=== PATIENT | female | born 1940 | race Caucasian/White ===

== ENCOUNTER 2020-11-10 09:39 | Outpatient (CLI) | payer MEDICARE, SELFPAY ==
[2020-11-10] MEDS: IRON SUCROSE COMPLEX 300 MG in SODIUM CHLORIDE 0.9% IV 250 ML 125 MG IVPB (10:09)
[2020-11-10 10:13] VITALS: BMI 25.9
[2020-11-10 10:14] VITALS: BP 120/83; PULSE 80; RESP 14; TEMP 36.6; O2SAT 97
--- NOTE | 2020-11-10 13:00 | PC.NURSE ---
Patient here for #1 of 3 IV weekly Venofer infusions. Medication education given. NO concerns voiced. IV Venofer administered See MAY. Tolerated well. Will return Next Saturday for #2 of 3 2020 @ 4425. Safe exit of hospital.
== END 2020-11-10 09:40 | disposition home or self-care (01) ==
LOC: CHSLAB 09:47 → CHSTREATRM 09:49
PROVIDERS: PCP Physician Assistant; Visit Provider Internal Medicine Hematology & Oncology
DX: D50.9 Iron deficiency anemia, unspecified (principal)
CPT/HCPCS: 96365; 96366; J1756; J7050

== ENCOUNTER 2020-11-18 09:56 | Outpatient (CLI) | payer MEDICARE, SELFPAY ==
[2020-11-18 10:15] VITALS: BP 132/70; PULSE 86; RESP 18; TEMP 36.6; O2SAT 94
--- NOTE | 2020-11-18 10:18 | PC.NURSE ---
1005--Patient here for #2 IV infusion of Venofer. Patient ambulated to OP treatment room independently. Patient denies any side effects or problems from last infusion. --Shruti Adams RN
[2020-11-18 10:20] VITALS: BMI 25.9
[2020-11-18] MEDS: IRON SUCROSE COMPLEX 300 MG in SODIUM CHLORIDE 0.9% IV 250 ML 125 MG IVPB (10:31)
--- NOTE | 2020-11-24 09:46 | PC.NURSE ---
11/18/20 Patient tolerated #2 of 3 IV Venofer infusions. No concerns voiced. Will return next 11/24/20 at 0930 for #3. Safe exit of hospital.
== END 2020-11-18 09:57 | disposition home or self-care (01) ==
LOC: CHSTREATRM 09:59
PROVIDERS: PCP Physician Assistant; Visit Provider Internal Medicine Hematology & Oncology
DX: D50.9 Iron deficiency anemia, unspecified (principal)
CPT/HCPCS: 96365; 96366; J1756; J7050

== ENCOUNTER 2020-11-24 09:27 | Outpatient (CLI) | payer MEDICARE, SELFPAY ==
[2020-11-24 09:36] VITALS: BMI 25.9
[2020-11-24 09:42] VITALS: BP 128/80; PULSE 72; RESP 16; TEMP 36.7; O2SAT 98
[2020-11-24] MEDS: IRON SUCROSE COMPLEX 300 MG in SODIUM CHLORIDE 0.9% IV 250 ML 125 MG IVPB (09:50)
--- NOTE | 2020-11-24 11:42 | PC.NURSE ---
Patient here for #3 of of 3 IV Venofer infusion. No concerns voiced. Venofer IV administered. SEE MAR. Tolerated well. Safe exit of hospital.
== END 2020-11-24 09:28 | disposition home or self-care (01) ==
LOC: CHSTREATRM 09:30
PROVIDERS: PCP Physician Assistant; Visit Provider Internal Medicine Hematology & Oncology
DX: D50.9 Iron deficiency anemia, unspecified (principal)
CPT/HCPCS: 96365; 96366; J1756; J7050